=== PATIENT | female | born 1990 | race Caucasian/White ===

== ENCOUNTER 2018-04-13 08:36 | Day surgery (SDC) | payer OTHER ==
[2018-04-12 15:44] VITALS: BMI 25.4
[2018-04-13 10:24] VITALS: TEMP 97.5
--- NOTE | 2018-04-13 10:32 | PROC ---
Endoscopy Procedure Endoscopy procedure completed. Please see scanned procedure report.
[2018-04-13 12:01] VITALS: BP 103/64; PULSE 67
--- NOTE | 2018-04-14 13:06 | PATH ---
Surgical Pathology Report Patient Name: GATO PARIKH [facility] Rec. #: [id number] /Age/Gender: 1990 (Age: 27) / F Account: [id number] Location: [facility]-ENDOSCOPY Taken: 04/13/2018 Received: 04/13/2018 Reported: 04/14/2018 Physicians: Bill Rowan M.D. Specimen(s) Received A: BX 2ND PORTION DUODENUM B: BX ANTRUM AND BODY C: BX ILEUM D: ASCENDING COLON POLYP E: BX DESCENDING COLON POLYP F: BX SIGMOID G: BX RECTUM Clinical History Change in bowel habits Postoperative diagnosis: Mild gastritis, change in bowel habits Final Diagnosis A. DUODENUM, SECOND PORTION, BIOPSY: DUODENAL MUCOSA WITHOUT SIGNIFICANT PATHOLOGIC FINDINGS. B. STOMACH, ANTRUM AND BODY, BIOPSY: GASTRIC ANTRAL AND BODY MUCOSA WITH MILD CHRONIC GASTRITIS. IMMUNOHISTOCHEMICAL STAIN FOR H. PYLORI IS NEGATIVE. C. ILEUM, BIOPSY: ILEAL MUCOSA WITHOUT SIGNIFICANT PATHOLOGIC FINDINGS. D. ASCENDING COLON, BIOPSY: COLONIC MUCOSA WITH PROMINENT LYMPHOID AGGREGATES. E. DESCENDING COLON, BIOPSY: COLONIC MUCOSA WITH PROMINENT LYMPHOID AGGREGATES. F. SIGMOID COLON, BIOPSY: COLONIC MUCOSA WITHOUT SIGNIFICANT PATHOLOGIC FINDINGS. G. RECTUM, BIOPSY: COLONIC MUCOSA WITH PROMINENT LYMPHOID AGGREGATES. Electronically Signed Carlyn Powell M.D. Gross Description A. Received in formalin, labeled "biopsy second portion of duodenum" are 2 carlson, irregular portions of soft tissue measuring 0.2 and 0.3 cm. in greatest dimension. The specimens are submitted in toto in one cassette. B. Received in formalin, labeled "biopsy antrum and body" are 2 carlson, irregular portions of soft tissue measuring 0.3 and 0.5 cm. in greatest dimension. The specimens are submitted in toto in one cassette. C. Received in formalin, labeled "biopsy ileum" are 2 carlson, irregular portions of soft tissue averaging 0.3 cm. in greatest dimension. The specimens are submitted in toto in one cassette. D. Received in formalin, labeled "biopsy ascending colon" are 2 carlson, irregular portions of soft tissue averaging 0.3 cm. in greatest dimension. The specimens are submitted in toto in one cassette. E. Received in formalin, labeled "biopsy descending colon" are 2 carlson, irregular portions of soft tissue averaging 0.3 cm. in greatest dimension. The specimens are submitted in toto in one cassette. F. Received in formalin, labeled "biopsy sigmoid colon" is a carlson, irregular portion of soft tissue measuring 0.6 cm. in greatest dimension. The specimen is submitted in toto in one cassette. G. Received in formalin, labeled "biopsy rectum" are 2 carlson, irregular portions of soft tissue measuring 0.2 and 0.3 cm. in greatest dimension. The specimens are submitted in toto in one cassette. 04/13/2018 [facility]04/13/2018
== END 2018-04-13 11:05 | disposition home or self-care (01) ==
LOC: JASU-ENDO 08:36
PROVIDERS: ATTEND Internal Medicine Gastroenterology
PROC: 0DBL8ZX Excision of Transverse Colon, Via Natural or Artificial Opening Endoscopic, Diagnostic (ICD-10-PCS; 2018-04-13)
PROC: 0DBN8ZX Excision of Sigmoid Colon, Via Natural or Artificial Opening Endoscopic, Diagnostic (ICD-10-PCS; 2018-04-13)
PROC: 0DBP8ZX Excision of Rectum, Via Natural or Artificial Opening Endoscopic, Diagnostic (ICD-10-PCS; 2018-04-13)
PROC: 0DBM8ZX Excision of Descending Colon, Via Natural or Artificial Opening Endoscopic, Diagnostic (ICD-10-PCS; 2018-04-13)
PROC: 0DB98ZX Excision of Duodenum, Via Natural or Artificial Opening Endoscopic, Diagnostic (ICD-10-PCS; 2018-04-13)
PROC: 0DB68ZX Excision of Stomach, Via Natural or Artificial Opening Endoscopic, Diagnostic (ICD-10-PCS; 2018-04-13)
PROC: 0DBK8ZX Excision of Ascending Colon, Via Natural or Artificial Opening Endoscopic, Diagnostic (ICD-10-PCS; principal; 2018-04-13 09:30)
DX: K63.89 Other specified diseases of intestine (principal); K29.50 Unspecified chronic gastritis without bleeding; R19.7 Diarrhea, unspecified; R10.13 Epigastric pain; R63.4 Abnormal weight loss
CPT/HCPCS: 84703

== ENCOUNTER 2020-07-04 23:43 | Emergency (ER) | payer OTHER ==
[2020-07-04 23:50] VITALS: BP 119/70; PULSE 86; TEMP 97.8; BMI 25.5
== END 2020-07-05 00:23 | disposition home or self-care (01) ==
LOC: FER 23:43
DX: H92.22 Otorrhagia, left ear (principal)
CPT/HCPCS: 99282-25

== ENCOUNTER 2020-08-11 04:31 | Day surgery (SDC) | payer OTHER ==
[2020-08-06 09:33] VITALS: BMI 24.6
[2020-08-11] MEDS ORDERED: PROPOFOL 20 ML ONE (07:50)
[2020-08-11] MEDS ORDERED: ROCURONIUM BROMIDE 50 MG/5 ML SYRINGE ONE (07:50)
[2020-08-11] MEDS ORDERED: fentaNYL CITRATE 250 MCG/5 ML VIAL ONE (07:50)
[2020-08-11] MEDS ORDERED: MIDAZOLAM HCL 2 MG/2 ML SINGLE DOSE VIAL ONE (07:50)
[2020-08-11] MEDS ORDERED: KETOROLAC TROMETHAMINE 30 MG/1 ML VIAL ONE (07:55)
[2020-08-11] MEDS ORDERED: DEXAMETHASONE SOD PHOSPHATE 4 MG/1 ML VIAL ONE (07:55)
[2020-08-11] MEDS ORDERED: ceFAZolin SODIUM 1 GM VIAL IVPB ONE ×2 (07:58→08:35)
[2020-08-11] MEDS ORDERED: BUPIVACAINE HCL 100 ML ONE (08:11)
[2020-08-11] MEDS ORDERED: ceFAZolin SODIUM 1 GM VIAL ONE (08:25)
[2020-08-11] MEDS ORDERED: GLYCOPYRROLATE 0.2 MG/1 ML VIAL ONE (10:23)
[2020-08-11] MEDS ORDERED: NEOSTIGMINE METHYLSULFATE 0.5 MG/ML - 10 ML MDV ONE (10:23)
[2020-08-11] MEDS ORDERED: FLUMAZENIL 0.5 MG/5 ML VIAL ONE (10:26)
[2020-08-11] MEDS ORDERED: INDOCYANINE GREEN 25 MG/10 ML VIAL IVPUSH ONE (10:28)
[2020-08-11] MEDS ORDERED: ONDANSETRON 4 MG/2 ML VIAL IVPUSH PRN (11:26)
[2020-08-11] MEDS ORDERED: oxyCODONE HCL 5 MG TABLET PO PRN (11:32)
[2020-08-11] MEDS ORDERED: HYDROmorphone HCL CARPU-JECT 2 MG/1 ML DISP.SYRIN IVPUSH ONE (12:40)
[2020-08-11] MEDS ORDERED: ACETAMINOPHEN 1000 MG/100 ML BAG IVPB ONE ×2 (12:40)
[2020-08-11] MEDS ORDERED: LACTATED RINGERS SOLUTION 1,000 ML IV SCH (12:45)
[2020-08-11] MEDS ORDERED: HYDROmorphone HCl 2 MG/ML VIAL ONE (12:47)
[2020-08-11] MEDS ORDERED: HYDROmorphone HCl 2 MG/ML VIAL IVPUSH ONE (12:50)
[2020-08-11] MEDS: oxyCODONE HCL 5 MG TABLET PO PRN ×2 (16:34→22:25)
[2020-08-11] MEDS: ACETAMINOPHEN 325 MG TABLET (FP) PO PRN (18:23)
[2020-08-11] MEDS: IBUPROFEN 600 MG TABLET (FP) PO PRN (18:24)
[2020-08-12] MEDS: ACETAMINOPHEN 325 MG TABLET (FP) PO PRN (00:31)
[2020-08-12] MEDS: IBUPROFEN 600 MG TABLET (FP) PO PRN (00:31)
[2020-08-12 08:23] LABS: HEMATOCRIT 31.9 % (32.4-45.2); HEMOGLOBIN 10.9 GM/dL (10.7-15.3); MEAN CELL VOLUME 99.8 fl (80-96); MEAN PLT VOLUME 7.1 fl (7.5-11.1); PLATELET COUNT 378 K/MM3 (134-434); RDW 12.4 % (11.6-15.6); WHITE BLOOD COUNT 13.3 K/mm3 (4.0-10.0)
[2020-08-12 09:10] LABS: CREATININE 0.6 mg/dL (0.55-1.3)
[2020-08-12 13:22] VITALS: BP 106/65; PULSE 88; TEMP 98.6
== END 2020-08-12 17:00 | disposition home or self-care (01) ==
LOC: JASUSAT 04:31 → J3W 13:34 → JASUSAT 08-12 17:00
PROVIDERS: ATTEND Obstetrics & Gynecology
PROC: 0UT7FZZ Resection of Bilateral Fallopian Tubes, Via Natural or Artificial Opening With Percutaneous Endoscopic Assistance (ICD-10-PCS; 2020-08-11)
PROC: 0UT9FZZ Resection of Uterus, Via Natural or Artificial Opening With Percutaneous Endoscopic Assistance (ICD-10-PCS; principal; 2020-08-11 08:00)
DX: N94.6 Dysmenorrhea, unspecified (principal); N92.0 Excessive and frequent menstruation with regular cycle; N83.8 Other noninflammatory disorders of ovary, fallopian tube and broad ligament; N80.0 Endometriosis of uterus
CPT/HCPCS: 36415; 82565; 84703; 85027; 86850; 86900; 86901; 86922; 88305-TC; 94760; J0131

== ENCOUNTER 2020-12-28 20:30 | Emergency (ER) | payer OTHER ==
[2020-12-28 20:57] VITALS: BP 118/76; PULSE 89; TEMP 97.8; BMI 23.9
== END 2020-12-28 21:30 | disposition home or self-care (01) ==
LOC: FER 20:30
DX: S99.921A Unspecified injury of right foot, initial encounter (principal)
CPT/HCPCS: 73660-TC-FY; 99283-25

== ENCOUNTER 2021-04-30 15:29 | Emergency (ER) | payer OTHER ==
[2021-04-30 15:39] VITALS: BP 124/75; PULSE 85; TEMP 98; BMI 24.4
[2021-04-30] MEDS ORDERED: DIPHTH,PERTUSS(ACELL),TET 0.5 ML DISP.SYRIN IM ONE ×2 (16:01→16:20)
[2021-04-30] MEDS ORDERED: ACETAMINOPHEN 1000 MG/100 ML VIAL (NON FORMULARY) IVPB ONE (16:27)
[2021-04-30] MEDS ORDERED: ONDANSETRON 4 MG/2 ML VIAL ONE (16:27)
[2021-04-30] MEDS ORDERED: METOCLOPRAMIDE HCL INJECTION 10 MG/2 ML VIAL IVPB ONE (16:27)
[2021-04-30] MEDS ORDERED: METOCLOPRAMIDE HCL INJECTION 10 MG/2 ML VIAL ONE (16:27)
[2021-04-30] MEDS ORDERED: SODIUM CHLORIDE 0.9% 500 ML INFUS.BAG IV ONE (16:27)
[2021-04-30] MEDS ORDERED: ACETAMINOPHEN INJECTION 100 ML IVPB ONE (16:27)
== END 2021-04-30 17:59 | disposition home or self-care (01) ==
LOC: FER 15:29
PROC: 3E0234Z Introduction of Serum, Toxoid and Vaccine into Muscle, Percutaneous Approach (ICD-10-PCS; principal; 2021-04-30)
PROC: 3E033NZ Introduction of Analgesics, Hypnotics, Sedatives into Peripheral Vein, Percutaneous Approach (ICD-10-PCS; 2021-04-30)
PROC: 3E033GC Introduction of Other Therapeutic Substance into Peripheral Vein, Percutaneous Approach (ICD-10-PCS; 2021-04-30)
PROC: 3E033GC Introduction of Other Therapeutic Substance into Peripheral Vein, Percutaneous Approach (ICD-10-PCS; 2021-04-30)
DX: K58.0 Irritable bowel syndrome with diarrhea (principal); F10.10 Alcohol abuse, uncomplicated; S51.812A Laceration without foreign body of left forearm, initial encounter
CPT/HCPCS: 73030-TC-LT-FY; 90471; 90715; 96374; 96375; 99284-25; J0131

== ENCOUNTER 2023-07-21 15:03 | Emergency (ER) | payer OTHER ==
[2023-07-21 16:00] VITALS: BP 123/78; PULSE 66; RESP 18; TEMP 98.6; BMI 28.8
== END 2023-07-21 16:35 | disposition home or self-care (01) ==
LOC: FER 15:03
DX: R00.2 Palpitations (principal); R19.7 Diarrhea, unspecified; R53.1 Weakness; Z20.822 Contact with and (suspected) exposure to COVID-19
CPT/HCPCS: 0241U-QW; 93005; 99284-25